=== PATIENT | male | born 1975 | race Caucasian/White ===

== ENCOUNTER 2021-05-11 21:50 | Emergency (ER) | payer SELFPAY ==
[2021-05-11] MEDS ORDERED: CLONIDINE HCL 0.1 MG TAB PO ONE (22:00)
[2021-05-11] MEDS ORDERED: CLONIDINE HCL 0.1 MG TAB ONE (22:08)
[2021-05-11] MEDS ORDERED: CLONIDINE HCL 0.2 MG TAB ONE (22:09)
[2021-05-11] MEDS ORDERED: CLONIDINE HCL 0.3 MG TAB PO ONE (22:15)
[2021-05-12 00:22] VITALS: BP 193/107
[2021-05-12] MEDS ORDERED: CLONIDINE HCL0.1 MG PO (00:23)
== END 2021-05-12 00:35 | disposition home or self-care (01) ==
LOC: ER 21:56
DX: I16.0 Hypertensive urgency (principal); R52 Pain, unspecified; I10 Essential (primary) hypertension
CPT/HCPCS: 99283